=== PATIENT | male | born 1955 | race Two or more races ===

== ENCOUNTER 2017-07-13 20:45 | Inpatient (IN) | payer SELFPAY ==
[~2017-07-13] VITALS: Ht 162.6 cm; Wt 64.0 kg
[2017-07-13 22:04] LABS: BASOPHILS % 0.7 % (0.0-2.0); EOSINOPHILS % 3.7 % (0.0-5.0); HEMATOCRIT. 38.8 % (42.0-52.0); HEMOGLOBIN. 12.7 g/dL (14.0-18.0); LYMPHOCYTES % 27.6 % (20.0-50.0); MEAN CORPUSCULAR HEMOGLOBIN 26.7 pg (28.0-32.0); MEAN CORPUSCULAR VOLUME 81.4 fL (80.0-94.0); MEAN PLATELET VOLUME 7.9 fl (7.4-10.4); MONOCYTES % 11.4 % (2.0-8.0); NEUTROPHILS % 56.6 % (40.0-76.0); PLATELET 75 x1000/uL (130-400); RED BLOOD CELL COUNT 4.76 mill/uL (4.7-6.1); RED CELL DISTRIBUTION WIDTH 15.5 % (11.6-14.6)
[2017-07-13 22:13] LABS: INR 1.2
[2017-07-13 22:17] LABS: CHLORIDE 100 mEq/L (98-107)
[2017-07-13] MEDS ORDERED: ONDANSETRON HCL 4MG/2ML VIAL IV STA (23:30)
[2017-07-13] MEDS ORDERED: PANTOPRAZOLE SODIUM 40 MG/VIAL IV ONE (23:30)
[2017-07-13] MEDS ORDERED: SODIUM CHLORIDE 0.9% 1,000 ML IV ONE (23:30)
[2017-07-14] VITALS (7 sets, daily range): BP systolic 122–144; BP diastolic 76–89
[2017-07-14] MEDS ORDERED: INSULIN REGULAR (HUMULIN R) 300UNITS/3ML IV ONE (02:00)
[2017-07-14] MEDS ORDERED: METF500T4 PO (06:52)
[2017-07-14] MEDS ORDERED: DEXTROSE 50% WATER 50ML SYRINGE IV PRN ×2 (09:15)
[2017-07-14] MEDS ORDERED: INSULIN LISPRO 100 UNITS/ML SUBCUT ONE (10:00)
[2017-07-14 13:18] LABS: BASOPHILS % 0.6 % (0.0-2.0); EOSINOPHILS % 2.1 % (0.0-5.0); HEMATOCRIT. 37.3 % (42.0-52.0); LYMPHOCYTES % 17.3 % (20.0-50.0); MEAN CORPUSCULAR HEMOGLOBIN 26.1 pg (28.0-32.0); MEAN CORPUSCULAR VOLUME 81.3 fL (80.0-94.0); MEAN PLATELET VOLUME 8.2 fl (7.4-10.4); MONOCYTES % 13.1 % (2.0-8.0); NEUTROPHILS % 66.9 % (40.0-76.0); PLATELET 61 x1000/uL (130-400); RED BLOOD CELL COUNT 4.58 mill/uL (4.7-6.1)
[2017-07-14] MEDS: INSULIN LISPRO 100 UNITS/ML SUBCUT SCH ×3 (13:37→21:00)
[2017-07-14] MEDS: BLOOD SUGAR DIAGNOSTIC STRIP TEST SCH ×3 (13:38→21:00)
[2017-07-14 14:16] LABS: CHLORIDE 99 mEq/L (98-107)
[2017-07-14] MEDS ORDERED: NA PHOS,M-B/NA PHOS,DI-BA ENEMA 118ML PR NR (17:30)
[2017-07-14] MEDS ORDERED: BISACODYL 10MG SUPP PR PRN (17:30)
[2017-07-15 04:00] VITALS: BP 113/73
[2017-07-15 08:00] VITALS: BP 124/87
[2017-07-15 08:04] LABS: HEMATOCRIT 41.3 % (42.0-52.0); HEMOGLOBIN 13.2 g/dL (14.0-18.0); MEAN CORPUSCULAR HEMOGLOBIN 26.2 pg (28.0-32.0); MEAN CORPUSCULAR VOLUME 82.1 fL (80.0-94.0); PLATELET 72 x1000/uL (130-400); RED BLOOD CELL COUNT 5.03 mill/uL (4.7-6.1); RED CELL DISTRIBUTION WIDTH 15.3 % (11.6-14.6)
[2017-07-15] MEDS: BLOOD SUGAR DIAGNOSTIC STRIP TEST SCH ×2 (08:33→12:37)
[2017-07-15] MEDS: INSULIN LISPRO 100 UNITS/ML SUBCUT SCH ×2 (08:35→13:03)
[2017-07-15 08:56] LABS: FOLIC ACID (FOLATE) SERUM >20 ng/mL ng/mL (>5.38)
[2017-07-15] MEDS ORDERED: PANTOPRAZOLE SODIUM 40 MG/VIAL IV SCH (09:00)
[2017-07-15 09:46] LABS: VITAMIN B12 SERUM 1279 pg/mL (211-911)
[2017-07-15 11:45] LABS: FERRITIN 33 ng/mL (22-322)
[2017-07-15 12:00] VITALS: BP_SYST 124; BP_SYST 146; BP_DIAS 83; BP_DIAS 87
[2017-07-15 12:41] VITALS: BP 130/82
[2017-07-15] MEDS ORDERED: METFORMIN HCL 500MG TABLET PO SCH (12:45)
== END 2017-07-15 13:10 | disposition home or self-care (01) | DRG 244 ==
LOC: ER 20:45 → 7WST 07-14 01:53 → ENRESERV 07-14 04:30 → 7WST 07-14 06:28
PROVIDERS: ADMIT Family Medicine; ATTEND Family Medicine
DX: K57.91 Diverticulosis of intestine, part unspecified, without perforation or abscess with bleeding (principal); S22.080A Wedge compression fracture of T11-T12 vertebra, initial encounter for closed fracture; D68.9 Coagulation defect, unspecified; K76.6 Portal hypertension; D69.6 Thrombocytopenia, unspecified; E11.65 Type 2 diabetes mellitus with hyperglycemia; I11.9 Hypertensive heart disease without heart failure; E86.0 Dehydration; D64.9 Anemia, unspecified; F17.210 Nicotine dependence, cigarettes, uncomplicated; K44.9 Diaphragmatic hernia without obstruction or gangrene; K74.60 Unspecified cirrhosis of liver; N40.0 Benign prostatic hyperplasia without lower urinary tract symptoms; N32.89 Other specified disorders of bladder; R16.1 Splenomegaly, not elsewhere classified; M43.17 Spondylolisthesis, lumbosacral region; M47.897 Other spondylosis, lumbosacral region; X58.XXXA Exposure to other specified factors, initial encounter; Y93.89 Activity, other specified; Y92.89 Other specified places as the place of occurrence of the external cause; Y99.8 Other external cause status
CPT/HCPCS: 36415; 71045; 74018; 74176; 80048; 80053; 80076; 82248; 82607; 82728; 82746; 82962; 83540; 83550; 85018; 85025; 85027; 85610; 86850; 86900; 93005; C9113; J1815; J2405; J7030